=== PATIENT | female | born 1970 | race Caucasian/White ===

== ENCOUNTER → 2020-04-05 | Outpatient (CLI) | payer BC, OTHER ==
[2020-04-05 19:35] LABS: HEMOGLOBIN 11.4 gm/dl (12.3-15.3); RED BLOOD COUNT 4.54 M/UL (4.00-5.10)
[2020-04-05 19:57] LABS: BUN/CREATININE RATIO 29 (0-10)
[2020-04-07 10:10] LABS: ANTISTREPTOLYSIN O AB 49.7 IU/mL (0.0-200.0); COMPLEMENT C3, SERUM 164 mg/dL (82-167); COMPLEMENT C4, SERUM 13 mg/dL (12-38)
[2020-04-07 13:10] LABS: RPR Non Reactive (Non Reactive)
[2020-04-08 08:10] LABS: HIV SCREEN 4TH GENERATION WRFX Non Reactive (Non Reactive)
== END ==
LOC: LAB 18:24
PROVIDERS: Family Medicine
DX: L30.9 Dermatitis, unspecified (principal)
CPT/HCPCS: 80053; 81001; 82550; 82785; 85025; 85652; 86038; 86060; 86140; 86160; 86162; 86592; 86701; 86702; 86780; 87081; 87389; 87880